=== PATIENT | male | born 1970 | race African-American/Black ===

== ENCOUNTER 2019-03-29 21:54 | Observation (INO) | payer SELFPAY ==
[2019-03-29 22:28] LABS: #Basophils 0.1 thou/uL (0.0-0.2); #Eosinphils 0.1 thou/uL (0.0-0.7); #Lymphocytes 2.1 thou/uL (1.20-3.40); #Monocytes 1.3 thou/uL (0.11-0.59); #Neutrophils 10.5 thou/uL (1.40-6.50); %Basophils 0.5 % (0.0-1.0); %Eosinophils 0.4 % (0.0-10.0); %Lymphocytes 15.2 % (21.0-51.0); %Monocytes 9.2 % (0.0-10.0); %Neutrophils 74.7 % (42.0-75.0); Hemoglobin 14.5 g/dL (14.0-18.0); Mean Corpuscular HGB CONC 32.8 g/dL (32.0-36.0); Mean Corpuscular Hemoglobin 27.8 pg (27.0-31.0); Mean Corpuscular Volume 84.9 fL (78.0-98.0); Mean Platelet Volume 7.7 fL (7.4-10.4); Platelet Count 297 thou/uL (130-400); RBC Distribution Width 13.1 % (11.5-14.5); Red Blood Cell (RBC) Count 5.21 mill/uL (4.70-6.10)
[2019-03-29] MEDS ORDERED: Metoclopramide HCl 10 MG/2 ML VIAL ONE (22:34)
[2019-03-29] MEDS ORDERED: diphenhydrAMINE 50 MG/ML VIAL ONE (22:34)
[2019-03-29] MEDS ORDERED: Acetaminophen 500 MG TAB ONE (22:42)
[2019-03-29 22:48] LABS: ALT (SGPT) 30 U/L (8-55); AST (SGOT) 24 U/L (5-34); Albumin 4.6 g/dL (3.5-5.0); Alkaline Phosphatase 85 U/L (40-110); Anion Gap 17 mmol/L (10-20); BUN (Urea Nitrogen) 13 mg/dL (8.9-20.6); Bilirubin, Total 0.2 mg/dL (0.2-1.2); Calc. Creatinine Clearance 0 mL/min (70-130); Calcium 9.3 mg/dL (7.8-10.44); Carbon Dioxide 24 mmol/L (22-29); Chloride 103 mmol/L (98-107); Estimated GFR-MDRD 82; Globulin 3.2 g/dL (2.4-3.5); Glucose 109 mg/dL (70-105); Potassium 4.1 mmol/L (3.5-5.1); Protein, Total 7.8 g/dL (6.0-8.3); Sodium 140 mmol/L (136-145)
--- NOTE | 2019-03-29 22:51 | RAD ---
Chest AP view INDICATION: Chest pain and headache COMPARISON: None FINDINGS: Lungs:The lungs are clear Cardiac silhouette:The cardiomediastinal silhouette appears within normal limits. Pulmonary vasculature:Normal Pleural spaces:No pleural effusion or pneumothorax is demonstrated. Upper abdomen:No abnormality seen. Osseous structures: No acute osseous abnormality. Additional findings:None. IMPRESSION: No acute cardiopulmonary abnormality.
[2019-03-29 23:10] LABS: CKMB 1.4 ng/mL (0-6.6)
--- NOTE | 2019-03-29 23:31 | CT ---
CT Brain WO Con: 03/29/2019 10:24 PM CLINICAL HISTORY: Altered mental status with hypertension. IMAGING TECHNIQUE: Multiple CT images were obtained of the brain without IV contrast. COMPARISON: None. FINDINGS: Brain: No acute infarct or hemorrhage is evident. No midline shift. Ventricles: Normal. No hydrocephalus.. Skull: Intact.. Visualized Paranasal sinuses: Clear.. Mastoid air cells:Clear. Extracranial soft tissues:Normal. IMPRESSION: No acute intracranial abnormality.
[2019-03-29] MEDS ORDERED: Aspirin 325 MG TAB ONE (23:46)
[2019-03-29] MEDS ORDERED: Aspirin Chewable 81 MG TAB ONE (23:47)
[2019-03-30] MEDS ORDERED: Labetalol HCl 100 MG/20 ML VIAL SLOW IVP PRN ×2 (00:37→01:57)
[2019-03-30 00:38] VITALS: BMI 31.6
[2019-03-30 01:35] LABS: Troponin I Less than 0.010 ng/mL (< 0.028)
[2019-03-30] MEDS ORDERED: Acetaminophen 325 MG TAB PO PRN (01:57)
--- NOTE | 2019-03-30 04:01 | HP ---
The patient currently does not have a primary care physician. CHIEF COMPLAINT: Headache. HISTORY OF PRESENT ILLNESS: Mr. Graff is a pleasant 49-year-old gentleman, who does not have any former past medical history. He says that about 3 months ago, he had a tooth pulled and at that time, he was told his blood pressure was elevated and that he should see a doctor for high blood pressure. He never followed up and then about 2 days ago, he says he woke up with a fairly severe headache. He described it as about an 8/10 to 9/10. There was no associated symptoms such as vision changes. No nausea, no vomiting, and no weakness in his upper or lower extremities. Due to the headache persisting, he came to the ER for evaluation. In the ER, he was found to have a blood pressure of 171/111 and it is reported that his blood pressure was noted to be as high as 200/120 when he was seen by the EMS staff. He was given nitroglycerin in the ER as well as IV labetalol and metoclopramide and diphenhydramine for the headache. CT scan of the brain was negative for any bleed or acute infarct and he is being admitted for further evaluation. Currently, the patient says his headache is much better and he does not have any specific complaints at this time. REVIEW OF SYSTEMS: All systems were reviewed and are negative except for that mentioned in the history of present illness. PAST MEDICAL HISTORY: Negative. PAST SURGICAL HISTORY: Also negative. ALLERGIES: NO KNOWN ALLERGIES. SOCIAL HISTORY: He is , has 3 children. He smokes about 10 cigarettes a day. Denies any alcohol use. FAMILY HISTORY: No history of any heritable diseases. CURRENT MEDICATIONS: None. PHYSICAL EXAMINATION: GENERAL: He is alert and oriented, although very sleepy. He will fall asleep throughout the interview. He is well developed and well nourished. VITAL SIGNS: Blood pressure currently 133/76, heart rate 74, respiratory rate of 16, temperature is 98.3. HEENT: Pupils are equal, round, and reactive. Extraocular muscles are intact. Sclerae anicteric. Throat, no erythema, no exudates. NECK: No adenopathy. No bruits. LUNGS: Clear to auscultation. There is no wheezing, no rales, no rhonchi. CARDIOVASCULAR: He has a normal S1, S2. There is no S3 or S4. No murmurs, clicks, or rubs. ABDOMEN: Soft. It is nontender and nondistended. Positive for bowel sounds. No rebound. No guarding. No organomegaly. EXTREMITIES: He has no clubbing or cyanosis. No edema. No calf tenderness. No joint effusions. NEUROLOGIC: The exam is grossly nonfocal. SKIN AND INTEGUMENT: No skin changes. No rash. LABORATORY RESULTS: His EKG is sinus rhythm and sinus tachycardia. He had some T-wave inversions in V5 and V6 and that is by my reading and on his initial EKG, there was also T-wave inversions in II and aVF. His chest x-ray showed borderline cardiomegaly. There was no evidence of effusion or infiltrate, also by my reading. LABORATORY DATA: White blood cell count is 14, hemoglobin 14.5, hematocrit is 44.2, and platelet count is 297. Sodium 140, potassium 4.1, chloride is 103, CO2 is 24, BUN of 13, creatinine 1.16, glucose is 109. Troponin is 0.030. ASSESSMENT: This is a pleasant 49-year-old gentleman, who presents to the emergency room with hypertensive urgency. Currently, his blood pressure is much better controlled and likely the headache is a result of the elevated blood pressure. We will go ahead and start him on lisinopril for blood pressure and see how this does later in the morning. He may need the addition of another antihypertensive given how high his blood pressure was initially, likely something like carvedilol as well, but we will go ahead and just start with the lisinopril, likely lisinopril and hydrochlorothiazide given the elevated blood pressure. We will also get an echocardiogram given the EKG changes and if there is significant wall motion abnormality, then likely will need to follow this up with a stress test. We will also check a lipid panel to see if this needs to be treated as well. It has been noted that [place] [facility] [place] [facility] [place] and he is uninsured and may need some assistance with his medications. Therefore, a Case Management consult has been placed. Job ID: [id number]
[2019-03-30 05:09] LABS: #Basophils 0.1 thou/uL (0.0-0.2); #Eosinphils 0.1 thou/uL (0.0-0.7); #Lymphocytes 2.9 thou/uL (1.20-3.40); #Monocytes 1.2 thou/uL (0.11-0.59); #Neutrophils 7.2 thou/uL (1.40-6.50); %Basophils 0.6 % (0.0-1.0); %Eosinophils 0.7 % (0.0-10.0); %Lymphocytes 25.3 % (21.0-51.0); %Monocytes 10.2 % (0.0-10.0); %Neutrophils 63.2 % (42.0-75.0); Hemoglobin 13.2 g/dL (14.0-18.0); Mean Corpuscular HGB CONC 32.4 g/dL (32.0-36.0); Mean Corpuscular Hemoglobin 27.8 pg (27.0-31.0); Mean Corpuscular Volume 85.6 fL (78.0-98.0); Mean Platelet Volume 7.5 fL (7.4-10.4); Platelet Count 277 thou/uL (130-400); RBC Distribution Width 13.1 % (11.5-14.5); Red Blood Cell (RBC) Count 4.75 mill/uL (4.70-6.10); White Blood Cell (WBC) Count 11.4 thou/uL (4.8-10.8)
[2019-03-30 05:34] LABS: Anion Gap 13 mmol/L (10-20); BUN (Urea Nitrogen) 14 mg/dL (8.9-20.6); Calc. Creatinine Clearance 96 mL/min (70-130); Calcium 9.3 mg/dL (7.8-10.44); Carbon Dioxide 26 mmol/L (22-29); Cardiac Risk 4.7 (Less than 4.5); Chloride 107 mmol/L (98-107); Cholesterol 213 mg/dl (< 200 Desired); Estimated GFR-MDRD 82; Glucose 91 mg/dL (70-105); HDL Cholesterol 45 mg/dL (>60 Neg Risk); LDL Cholesterol, Calculated 117 mg/dL; Potassium 4.3 mmol/L (3.5-5.1); Sodium 142 mmol/L (136-145); Triglycerides 253 mg/dL (Less than 150)
[2019-03-30 05:36] LABS: Troponin I 0.052 ng/mL (< 0.028)
[2019-03-30] MEDS ORDERED: Famotidine 20 MG TAB PO SCH (09:00)
[2019-03-30] MEDS ORDERED: Lisinopril/Hydrochlorothiazide 10 mg/12.5 mg Tablet PO SCH (09:00)
[2019-03-30 15:10] VITALS: BP 137/81; TEMP 98.5
[2019-03-30] MEDS ORDERED: FLU VACC QS2019-20(6MOS UP)/PF 60 MCG/0.5 ML SYRINGE IM ONE (21:00)
== END 2019-03-30 18:39 | disposition home or self-care (01) ==
LOC: ERS 21:54 → 2SW 03-30 00:22
PROVIDERS: ADMIT Internal Medicine; ATTEND Internal Medicine
DX: I16.0 Hypertensive urgency (principal)
CPT/HCPCS: 36415; 70450; 71045; 80048; 80053; 80061; 82553; 84484; 85025; 90471; 90686; 93005; 93306; 96361; 96374; 96375; G0008; G0378; J1200; J2765

== ENCOUNTER 2025-04-06 16:56 | Inpatient (IN) | payer OTHER ==
[2025-04-06 17:56] LABS: #Basophils 0.04 10x3/uL (0.0-0.2); #Eosinophils 0.04 10x3/uL (0.0-0.7); #Monocytes 1.00 10x3/uL (0.11-0.59); #Neutrophils 8.81 10x3/uL (1.40-6.50); %Basophils 0.3 % (0.0-1.0); %Eosinophils 0.3 % (0.0-10.0); %Lymphocytes 14.7 % (21.0-51.0); %Monocytes 8.6 % (0.0-10.0); %Neutrophils 75.7 % (42.0-75.0); Hematocrit 42.4 % (42.0-52.0); Hemoglobin 13.5 g/dL (14.0-18.0); Mean Corpuscular Hemoglobin 26.8 pg (27.0-31.0); Mean Corpuscular Volume 84.3 fL (78.0-98.0); Platelet Count 333 10x3/uL (130-400); Red Blood Cell (RBC) Count 5.03 mill/uL (4.70-6.10); White Blood Cell (WBC) Count 11.65 10x3/uL (4.8-10.8)
[2025-04-06 18:01] LABS: Cocaine Metabolite Screen Negative (Negative); THC/Cannabinoid Screen Negative (Negative); Tricyclic Screen Negative (Negative)
[2025-04-06 18:11] LABS: ALT (SGPT) 16 U/L (Less than 45); AST (SGOT) 22 U/L (11-34); Albumin 3.9 g/dL (3.1-4.5); Alkaline Phosphatase 77 U/L (40-110); Anion Gap 13 mmol/L (10-20); BUN (Urea Nitrogen) 14 mg/dL (8.4-25.7); Bilirubin, Total 0.2 mg/dL (0.3-1.2); Calc. Creatinine Clearance 0 mL/min (70-130); Calcium 9.5 mg/dL (7.8-10.44); Carbon Dioxide 23 mmol/L (22-29); Chloride 108 mmol/L (98-107); Globulin 3.3 g/dL (2.4-3.5); Glucose 98 mg/dL (70-105); Magnesium 2.0 mg/dL (1.6-2.6); Potassium 4.4 mmol/L (3.5-5.1); Sodium 140 mmol/L (136-145)
[2025-04-06] MEDS ORDERED: Aspirin Chewable 81 MG TAB ONE (19:52)
[2025-04-06] MEDS ORDERED: Enoxaparin 100 MG (1 mL) SYRINGE ONE (20:39)
[2025-04-06] MEDS ORDERED: Glucagon 1 MG/ML KIT IM PRN (21:24)
[2025-04-06] MEDS ORDERED: Dextrose 50% Abboject 50 ML SYRINGE SLOW IVP PRN (21:24)
[2025-04-06 23:41] VITALS: BMI 39.2
[2025-04-07 05:23] LABS: #Basophils 0.04 10x3/uL (0.0-0.2); #Eosinophils 0.08 10x3/uL (0.0-0.7); #Monocytes 0.92 10x3/uL (0.11-0.59); #Neutrophils 7.51 10x3/uL (1.40-6.50); %Basophils 0.4 % (0.0-1.0); %Eosinophils 0.7 % (0.0-10.0); %Lymphocytes 20.3 % (21.0-51.0); %Monocytes 8.5 % (0.0-10.0); %Neutrophils 69.5 % (42.0-75.0); Hematocrit 40.0 % (42.0-52.0); Hemoglobin 12.5 g/dL (14.0-18.0); Mean Corpuscular Hemoglobin 25.9 pg (27.0-31.0); Mean Corpuscular Volume 83.0 fL (78.0-98.0); Platelet Count 317 10x3/uL (130-400); Red Blood Cell (RBC) Count 4.82 mill/uL (4.70-6.10); White Blood Cell (WBC) Count 10.80 10x3/uL (4.8-10.8)
[2025-04-07 05:41] LABS: ALT (SGPT) 19 U/L (Less than 45); AST (SGOT) 23 U/L (11-34); Albumin 3.7 g/dL (3.1-4.5); Alkaline Phosphatase 73 U/L (40-110); Anion Gap 14 mmol/L (10-20); BUN (Urea Nitrogen) 13 mg/dL (8.4-25.7); Bilirubin, Total 0.2 mg/dL (0.3-1.2); Calc. Creatinine Clearance 121 mL/min (70-130); Calcium 9.3 mg/dL (7.8-10.44); Carbon Dioxide 24 mmol/L (22-29); Chloride 108 mmol/L (98-107); Globulin 3.2 g/dL (2.4-3.5); Glucose 146 mg/dL (70-105); Potassium 4.2 mmol/L (3.5-5.1); Sodium 142 mmol/L (136-145)
[2025-04-07] MEDS: metFORMIN 500 MG TAB PO SCH (08:59)
[2025-04-07] MEDS ORDERED: Enoxaparin 40 MG (0.4 mL) SYRINGE SC SCH (09:00)
[2025-04-07] MEDS: Gabapentin 300 MG CAP PO SCH (09:12)
[2025-04-07] MEDS: Aspirin 81 mg Enteric Coated Tablet PO SCH (09:12)
[2025-04-07] MEDS: Lisinopril 20 MG TAB PO SCH (09:13)
[2025-04-08 05:39] LABS: #Basophils 0.04 10x3/uL (0.0-0.2); #Eosinophils 0.11 10x3/uL (0.0-0.7); #Monocytes 1.36 10x3/uL (0.11-0.59); #Neutrophils 7.53 10x3/uL (1.40-6.50); %Basophils 0.3 % (0.0-1.0); %Eosinophils 0.9 % (0.0-10.0); %Lymphocytes 24.6 % (21.0-51.0); %Monocytes 11.3 % (0.0-10.0); %Neutrophils 62.3 % (42.0-75.0); Hematocrit 42.5 % (42.0-52.0); Hemoglobin 12.8 g/dL (14.0-18.0); Mean Corpuscular Hemoglobin 25.7 pg (27.0-31.0); Mean Corpuscular Volume 85.2 fL (78.0-98.0); Platelet Count 320 10x3/uL (130-400); Red Blood Cell (RBC) Count 4.99 mill/uL (4.70-6.10); White Blood Cell (WBC) Count 12.08 10x3/uL (4.8-10.8)
[2025-04-08 05:56] LABS: ALT (SGPT) 25 U/L (Less than 45); AST (SGOT) 26 U/L (11-34); Albumin 3.7 g/dL (3.1-4.5); Alkaline Phosphatase 73 U/L (40-110); Anion Gap 17 mmol/L (10-20); BUN (Urea Nitrogen) 16 mg/dL (8.4-25.7); Bilirubin, Total 0.2 mg/dL (0.3-1.2); Calc. Creatinine Clearance 113 mL/min (70-130); Calcium 9.2 mg/dL (7.8-10.44); Carbon Dioxide 24 mmol/L (22-29); Chloride 107 mmol/L (98-107); Globulin 3.4 g/dL (2.4-3.5); Glucose 98 mg/dL (70-105); Potassium 4.2 mmol/L (3.5-5.1); Sodium 144 mmol/L (136-145)
[2025-04-08] MEDS ORDERED: Nitroglycerin 50 MG/250 ML BOT 250 ML ONE (06:23)
[2025-04-08] MEDS ORDERED: Heparin 10,000 UNITS/ 10 ML VIAL ONE (06:23)
[2025-04-08] MEDS ORDERED: Lidocaine 1% (PF) 30 ML VIAL ONE (06:23)
[2025-04-08] MEDS ORDERED: Adenosine 6 mg (2 mL) VIAL ONE (06:23)
[2025-04-08] MEDS ORDERED: Nitroglycerin 0.4 MG TAB (25 Tab Bottle) SL PRN (07:50)
[2025-04-08] MEDS: Metoprolol Succinate XL 25 MG ER.TAB PO SCH (09:35)
[2025-04-08] MEDS ORDERED: Iopamidol 370 76% 100 ML VIAL ONE (11:32)
[2025-04-08 15:06] VITALS: BP 142/84; TEMP 98.1
[2025-04-08] MEDS: Acetaminophen 500 MG TAB PO PRN (15:26)
[2025-04-10] MEDS ORDERED: FLU (Fluarix Triv) 25-26 (6MOS UP)/PF 45 MCG/0.5 ML Syringe IM ONE (09:00)
== END 2025-04-08 18:15 | disposition home or self-care (01) | DRG 282 ==
LOC: ERS 16:56 → EEVIPCON 21:11 → 2NO 21:11 → OBSVTOIN 04-07 14:15
PROVIDERS: ADMIT Student in an Organized Health Care Education/Training Program; ATTEND Student in an Organized Health Care Education/Training Program
PROC: 4A023N7 Measurement of Cardiac Sampling and Pressure, Left Heart, Percutaneous Approach (ICD-10-PCS; principal; 2025-04-08)
PROC: B2151ZZ Fluoroscopy of Left Heart using Low Osmolar Contrast (ICD-10-PCS; 2025-04-08)
PROC: B2111ZZ Fluoroscopy of Multiple Coronary Arteries using Low Osmolar Contrast (ICD-10-PCS; 2025-04-08)
DX: I47.10 Supraventricular tachycardia, unspecified (principal); I21.A1 Myocardial infarction type 2; I10 Essential (primary) hypertension; E78.5 Hyperlipidemia, unspecified; E11.9 Type 2 diabetes mellitus without complications; Z79.82 Long term (current) use of aspirin; Z79.899 Other long term (current) drug therapy; Z79.84 Long term (current) use of oral hypoglycemic drugs; F17.210 Nicotine dependence, cigarettes, uncomplicated; E66.9 Obesity, unspecified; Z68.39 Body mass index [BMI] 39.0-39.9, adult
CPT/HCPCS: 36415; 36416; 71045; 80053; 80306; 83735; 83880; 84100; 84443; 84484; 85025; 85379; 93005; 93458; 96372; 99152; C1769; C1894; G0378; J0153; J1644; J1650; J1815; J2003; J2250; J3010; J7030